=== PATIENT | female | born 2000 | race Caucasian/White ===

== ENCOUNTER 2019-02-25 14:49 | Emergency (ER) | payer OTHER ==
[~2019-02-25] VITALS: Ht 157.5 cm; Wt 53.0 kg
[2019-02-25 19:16] LABS: BASOPHILS % 0.3 % (0.0-2.0); HEMATOCRIT. 40.5 % (36.0-48.0); HEMOGLOBIN. 13.9 g/dL (12.0-16.0); LYMPHOCYTES % 22.1 % (20.0-50.0); MEAN CORPUSCULAR HEMOGLOBIN 28.1 pg (28.0-32.0); MEAN CORPUSCULAR VOLUME 81.9 fL (81.0-99.0); MEAN PLATELET VOLUME 8.9 fl (7.4-10.4); MONOCYTES % 7.9 % (2.0-8.0); NEUTROPHILS % 68.7 % (40.0-76.0); PLATELET 214 x1000/uL (130-400); RED BLOOD CELL COUNT 4.94 mill/uL (4.2-5.4); RED CELL DISTRIBUTION WIDTH 13.7 % (11.6-14.6)
[2019-02-25 19:24] LABS: CHLORIDE 107 mEq/L (98-107)
[2019-02-25 19:47] LABS: B-HCG QUANTITATIVE 104165 mIU/mL (<3)
[2019-02-25 20:13] LABS: CLARITY URINE CLEAR (CLEAR); COLOR URINE YELLOW (YELLOW); KETONES URINE TRACE (NEGATIVE); LEUKOCYTE ESTERASE URINE TRACE (NEGATIVE); NITRITE URINE NEGATIVE (NEGATIVE); OCCULT BLOOD URINE NEGATIVE (NEGATIVE); PROTEIN URINE NEGATIVE (NEGATIVE); SPECIFIC GRAVITY URINE 1.029 (1.005-1.030)
[2019-02-25] MEDS ORDERED: CEPHALEXIN 250MG CAPSULE PO ONE (23:15)
[2019-02-25 23:25] VITALS: BP 108/59
== END 2019-02-26 00:06 | disposition home or self-care (01) ==
LOC: ER 14:49
DX: O20.0 Threatened abortion (principal); Z3A.12 12 weeks gestation of pregnancy
CPT/HCPCS: 36415; 76830; 76856; 81003; 81025; 84702; 86850; 86900; 99284

== ENCOUNTER 2020-08-26 05:48 | Emergency (ER) | payer OTHER ==
[~2020-08-26] VITALS: Ht 157.5 cm; Wt 58.6 kg
[2020-08-26] MEDS ORDERED: IBUPROFEN 600MG TABLET PO ONE (06:30)
[2020-08-26] MEDS ORDERED: IBUP-2029 MT (07:18)
[2020-08-26 07:45] VITALS: BP 130/82
== END 2020-08-26 07:49 | disposition home or self-care (01) ==
LOC: ER 05:48
DX: S90.31XA Contusion of right foot, initial encounter (principal); W50.1XXA Accidental kick by another person, initial encounter; Y93.89 Activity, other specified; Y92.89 Other specified places as the place of occurrence of the external cause; Y99.8 Other external cause status; Z98.890 Other specified postprocedural states
CPT/HCPCS: 73630; 81025; 99283

== ENCOUNTER 2021-02-07 16:17 | Emergency (ER) | payer OTHER ==
[~2021-02-07] VITALS: Ht 157.5 cm; Wt 59.0 kg
[~2021-02-07 16:17] MED LIST: IBUP-2029 MT
[2021-02-07 16:22] VITALS: BP 130/70
[2021-02-07] MEDS ORDERED: CEPH500T MT (18:51)
== END 2021-02-07 19:05 | disposition home or self-care (01) ==
LOC: ER 16:17
DX: L03.116 Cellulitis of left lower limb (principal); Z98.890 Other specified postprocedural states
CPT/HCPCS: 99283